=== PATIENT | male | born 1975 | race Caucasian/White ===

== ENCOUNTER 2016-10-23 14:54 | Emergency (ER) | payer SELFPAY ==
[~2016-10-23] VITALS: Ht 190.5 cm; Wt 87.0 kg
[2016-10-23 15:10] VITALS: BP 125/85; PULSE 137; RESP 20; TEMP 99.2; O2SAT 99
[2016-10-23 15:30] LABS: AUTOMATED NEUTROPHIL # 7.8 TH/MM3 (1.8-7.7); BASOPHIL % 0.3 % (0.0-2.0); EOSINOPHIL # 0.2 TH/MM3 (0-0.4); EOSINOPHIL % 1.6 % (0.0-4.0); HEMATOCRIT 46.6 % (39.0-51.0); HEMO FLAGS DIFF FINAL; LYMPH % 26.5 % (9.0-44.0); MEAN CELL VOLUME 92.1 FL (80.0-100.0); MEAN CORPUSCULAR HEMOGLOBIN 31.5 PG (27.0-34.0); MEAN CORPUSCULAR HGB CONC 34.2 % (32.0-36.0); MONO % 2.3 % (0.0-8.0); NEUT % 69.3 % (16.0-70.0); PLATELET COUNT 243 TH/MM3 (150-450); RED BLOOD COUNT 5.06 MIL/MM3 (4.50-5.90); RED CELL DISTRIBUTION WIDTH 12.7 % (11.6-17.2); WHITE BLOOD COUNT 11.3 TH/MM3 (4.0-11.0)
[2016-10-23] MEDS ORDERED: ONDANSETRON HCL 4 MG/2 ML VIAL IVP ONE (15:30)
[2016-10-23] MEDS ORDERED: HYDROmorphone HCL PF 1 MG/ML VIAL IV PUSH ONE ×3 (15:30→18:00)
[2016-10-23] MEDS ORDERED: SODIUM CHLORIDE 0.9% FLUSH 10 ML FLUSH IVF PRN (15:30)
[2016-10-23] MEDS ORDERED: SODIUM CHLOR 0.9% 1000 ML INJ 1,000 ML IV ONE (15:30)
--- NOTE | 2016-10-23 15:44 | PD ---
HPI Chief Complaint: Flank/Kidney Pain Time Seen by Provider: 15:11 Travel History International Travel<30 days: No Contact w/Intl Traveler<30days: No Traveled to known affect area: No History of Present Illness HPI 41-year-old male presents with right sided back pain and bleeding for the past couple of days. He states that he has passed a total of 11 stones and [place] He states that he is never had a have a stent or lithotripsy and he has passed all the stones on his own. He states that he's had a lot a CAT scans and he is worried about the radiation. Quality of pain is sharp. It is severe in nature. Pain is worse with movement. He denies other modifying factors. He denies other concurrent complaints. PFSH Past Medical History Kidney Stones: Yes Past Surgical History Other Surgery: Yes (BACK) Social History Alcohol Use: Yes Tobacco Use: Yes Substance Use: No Allergies-Medications (Allergen,Severity, Reaction): Coded Allergies: Toradol (Verified Allergy, Unknown, 10/23/16) Ultram (Verified Allergy, Unknown, 10/23/16) Reported Meds & Prescriptions Reported Meds & Active Scripts Active Macrobid (Nitrofurantoin Monoh/Nitrofur Macro) 100 Mg Cap 100 Mg PO BID 7 Days Zofran Odt (Ondansetron Odt) 4 Mg Tab 4 Mg SL Q6HR PRN Review of Systems Except as stated in HPI: all other systems reviewed are Neg Physical Exam Narrative GENERAL: Well-nourished, well-developed patient. SKIN: Warm and dry. HEAD: Normocephalic and atraumatic. EYES: No injection or drainage. ENT: No nasal drainage noted. NECK: Supple, trachea midline. CARDIOVASCULAR: Regular rate and rhythm RESPIRATORY: Breath sounds equal bilaterally. No accessory muscle use. GASTROINTESTINAL: Abdomen soft, non-tender, nondistended. EXTREMITIES: No edema. BACK: Nontender without obvious deformity in midline, no CVA tenderness. NEUROLOGICAL: Awake and alert. Motor and sensory grossly within normal limits. Normal speech. Data Data Last Documented VS Vital Signs Date Time Temp Pulse Resp B/P Pulse Ox O2 Delivery O2 Flow Rate FiO2 10/23/16 18:04 106 20 120/65 95 10/23/16 15:10 99.2 Orders Basic Metabolic Panel (Bmp) (10/23/16 15:17) Complete Blood Count With Diff (10/23/16 15:17) Ua Includes Microscopic (10/23/16 15:17) Iv Access Insert/Monitor (10/23/16 15:17) Ondansetron Inj (Zofran Inj) (10/23/16 15:30) Sodium Chloride 0.9% Flush (Ns Flush) (10/23/16 15:30) Sodium Chlor 0.9% 1000 Ml Inj (Ns 1000 M (10/23/16 15:30) Us Kidney/Renal/Bladder (10/23/16 15:24) Abdomen, Kub Only (10/23/16 ) Hydromorphone Pf Inj (Dilaudid Pf Inj) (10/23/16 15:30) Hydromorphone Pf Inj (Dilaudid Pf Inj) (10/23/16 16:30) Ct Abd/Pel W/O Iv Contrast (10/23/16 ) Hydromorphone Pf Inj (Dilaudid Pf Inj) (10/23/16 18:00) Labs Laboratory Tests Test 10/23/16 10/23/16 15:20 16:20 White Blood Count 11.3 TH/MM3 Red Blood Count 5.06 MIL/MM3 Hemoglobin 16.0 GM/DL Hematocrit 46.6 % Mean Corpuscular Volume 92.1 FL Mean Corpuscular Hemoglobin 31.5 PG Mean Corpuscular Hemoglobin 34.2 % Concent Red Cell Distribution Width 12.7 % Platelet Count 243 TH/MM3 Mean Platelet Volume 8.4 FL Neutrophils (%) (Auto) 69.3 % Lymphocytes (%) (Auto) 26.5 % Monocytes (%) (Auto) 2.3 % Eosinophils (%) (Auto) 1.6 % Basophils (%) (Auto) 0.3 % Neutrophils # (Auto) 7.8 TH/MM3 Lymphocytes # (Auto) 3.0 TH/MM3 Monocytes # (Auto) 0.3 TH/MM3 Eosinophils # (Auto) 0.2 TH/MM3 Basophils # (Auto) 0.0 TH/MM3 CBC Comment DIFF FINAL Differential Comment Sodium Level 141 MEQ/L Potassium Level 3.5 MEQ/L Chloride Level 106 MEQ/L Carbon Dioxide Level 26.2 MEQ/L Anion Gap 9 MEQ/L Blood Urea Nitrogen 14 MG/DL Creatinine 1.20 MG/DL Estimat Glomerular Filtration 67 ML/MIN Rate Random Glucose 133 MG/DL Calcium Level 8.9 MG/DL Urine Collection Type CLEAN CATCH Urine Color PINK Urine Turbidity MOD Urine pH 6.5 Urine Specific Sylvester 1.025 Urine Protein 30 mg/dL Urine Glucose (UA) NEG mg/dL Urine Ketones 15 mg/dL Urine Occult Blood LARGE Urine Nitrite NEG Urine Bilirubin NEG Urine Leukocyte Esterase NEG Urine RBC INNUM /hpf Urine WBC 20-24 /hpf Urine Squamous Epithelial 0-5 /hpf Cells Urine Yeast (Budding) Urine Oval Fat Bodies CI Urine Collection Time 16:20 MDM Medical Decision Making Medical Screen Exam Complete: Yes Emergency Medical Condition: Yes Medical Record Reviewed: Yes (past history confirmed) Interpretation(s) UA shows blood CBC & BMP Diagram 10/23/16 15:20 Last 24 hours Impressions Renal Ultrasound 10/23/16 1524 Signed Impressions: Service Date/Time: Sunday, October 23, 2016 15:48 - CONCLUSION: 1. Kidneys unremarkable sonographically. Questionable bladder calculus. Sunny Salas MD Differential Diagnosis Kidney stone, UTI, musculoskeletal Narrative Course Will check blood work, urinalysis, KUB, renal ultrasound and dose with Dilaudid , Zofran, IV fluids and reevaluate; patient declined CT imaging given multiple priors. Labs, ultrasound, KUB show possible stone in bladder without hydronephrosis. Patient states he still having significant pain after 2 doses of Dilaudid. Patient agrees to CAT scan to check for size and position of stone CT no acute, he can go home with Zofran and we'll give prescription for possible UTI given blood with possible infection given there is no stone. Requesting more Dilaudid which I do not think is indicated currently. Given return instructions. Nurse at bedside Diagnosis Primary Impression: Abdominal pain Qualified Code: R10.9 - Abdominal pain, unspecified location Additional Impression: UTI (urinary tract infection) Qualified Code: N39.0 - Urinary tract infection with hematuria, site unspecified Patient Instructions: General Instructions Additional Instructions: return as needed, follow with urology, zofran as needed, motrin and tylenol as needed Med/Other Pt SpecificInfo: Prescription(s) given Scripts Nitrofurantoin Monohydrate Macrocrystals (Macrobid)100 Mg [id number] Mg PO BID 7 Days Prov:Rosalia Maldonado MD 10/23/16 Ondansetron Odt (Zofran Odt)4 Mg Tab4 Mg SL Q6HR PRN (Nausea/Vomiting) #10 TAB Prov:Rosalia Maldonado MD 10/23/16 Disposition: 01 DISCHARGE HOME Condition: Stable Rosalia Maldonado MD Oct 23, 2016 15:44
[2016-10-23 15:48] LABS: POTASSIUM 3.5 MEQ/L (3.5-5.1)
[2016-10-23 15:51] LABS: BICARBONATE 26.2 MEQ/L (21.0-32.0)
[2016-10-23 16:29] LABS: BLOOD, URINE LARGE (NEG); GLUCOSE,URINE NEG (NEG); KETONE, URINE 15 mg/dL (NEG); NITRITE,URINE NEG (NEG); PH, URINE 6.5 (5.0-8.5)
--- NOTE | 2016-10-23 16:34 | RADHPO ---
EXAM DATE/TIME: 10/23/2016 15:48 [facility] COMPARISON: No previous studies available for comparison. INDICATIONS : Hematuria. MEDICAL HISTORY : Renal calculi. SURGICAL HISTORY : Back surgery. ENCOUNTER: Initial ACUITY: 1 day PAIN SCORE: 9/10 LOCATION: Bilateral flank MEASUREMENTS: RIGHT KIDNEY: 10.1 x 4.5 x 5.0 cm LEFT KIDNEY: 11.1 x 4.9 x 5.0 cm FINDINGS: RIGHT KIDNEY: Renal cortex is normal in thickness and echotexture. No hydronephrosis, stone, or mass. LEFT KIDNEY: Renal cortex is normal in thickness and echotexture. No hydronephrosis, stone, or mass. BLADDER: Echogenic structure within the gallbladder measuring up to 1.4 x 0.8 x 4.9 cm. Questionable bladder c alculus. CONCLUSION: 1. Kidneys unremarkable sonographically. Questionable bladder calculus. Sunny Salas MD on October 23, 2016 at 16:31 Board Certified Radiologist. This report was verified electronically.
[2016-10-23 16:35] LABS: METHOD OF COLLECTION CLEAN CATCH; URINE COLOR PINK (YELLW/STRAW)
[2016-10-23 16:36] LABS: RBC, URINE INNUM /hpf (0-3)
[2016-10-23 16:38] LABS: SQUAMOUS EPITHELIAL CELL URINE 0-5 /hpf (0-5)
[2016-10-23 17:11] VITALS: BP 128/73; PULSE 103; RESP 20; O2SAT 100
--- NOTE | 2016-10-23 17:48 | RADHPO ---
EXAM DATE/TIME: 10/23/2016 16:48 [facility] COMPARISON: No previous studies available for comparison. INDICATIONS : Right flank pain MEDICAL HISTORY : Renal calculi. SURGICAL HISTORY : None. ENCOUNTER: Initial ACUITY: 1 day PAIN SCORE: 9/10 LOCATION: Right flank FINDINGS: Supine view of the abdomen was performed. The abdominal bowel gas pattern is normal. No abnormal ma sses, calcifications, or organomegaly is seen. The osseous structures are unremarkable. CONCLUSION: 1. No acute findings. Sunny Salas MD on October 23, 2016 at 17:46 Board Certified Radiologist. This report was verified electronically.
[2016-10-23 18:04] VITALS: BP 120/65; PULSE 106; RESP 20; O2SAT 95
--- NOTE | 2016-10-23 18:10 | RADHPO ---
EXAM DATE/TIME: 10/23/2016 17:40 [facility] COMPARISON: No previous studies available for comparison. INDICATIONS : Right flank pain. ORAL CONTRAST: No oral contrast ingested. RADIATION DOSE: 14.64 CTDIvol (mGy) MEDICAL HISTORY : None SURGICAL HISTORY : None. ENCOUNTER: Initial ACUITY: 1 day PAIN SCALE: 6/10 LOCATION: Right Flank TECHNIQUE: Volumetric scanning of the abdomen and pelvis was performed. Using automated exposure control and ad justment of the mA and/or kV according to patient size, radiation dose was kept as low as reasonably achievable to obtain optimal diagnostic quality images. FINDINGS: LOWER LUNGS: The visualized lower lungs are clear. LIVER: Homogeneous density without lesion. There is no dilation of the biliary tree. No calcified gallston es. SPLEEN: Normal size without lesion. PANCREAS: Within normal limits. KIDNEYS: Normal in size and shape. There is no mass, stone, or hydronephrosis. ADRENAL GLANDS: Within normal limits. VASCULAR: There is no aortic aneurysm. BOWEL/MESENTERY: The stomach, small bowel, and colon demonstrate no acute abnormality. There is no free intraperitone al air or fluid. ABDOMINAL WALL: Within normal limits. RETROPERITONEUM: There is no lymphadenopathy. BLADDER: No wall thickening or mass. REPRODUCTIVE: Within normal limits. INGUINAL: There is no lymphadenopathy or hernia. MUSCULOSKELETAL: Within normal limits for patient age. CONCLUSION: 1. No acute findings. Specifically no renal calculi or evidence for obstructive uropathy. Sunny Salas MD on October 23, 2016 at 18:05 Board Certified Radiologist. This report was verified electronically.
[2016-10-23] MEDS ORDERED: ZOFR4TAB3 SL (18:25)
[2016-10-23] MEDS ORDERED: MACR100C2 PO (18:25)
== END 2016-10-23 18:46 | disposition home or self-care (01) ==
LOC: PHED 14:54
DX: N39.0 Urinary tract infection, site not specified (principal); R10.9 Unspecified abdominal pain; Z87.442 Personal history of urinary calculi; Z72.0 Tobacco use
CPT/HCPCS: 74000; 74176; 76775; 80048; 81001; 85025; 96361; 96374; 96375; 96376; 99284; J1170; J2405; J7030